=== PATIENT | female | born 1990 | race Caucasian/White ===

== ENCOUNTER 2024-03-23 11:52 | Emergency (ER) | payer OTHER ==
[~2024-03-23] VITALS: Ht 154.9 cm; Wt 45.8 kg
[2024-03-23] MEDS ORDERED: IBUPROFEN 600 MG TABLET ONE (13:00)
[2024-03-23] MEDS ORDERED: ONDANSETRON ODT 4 MG TAB.RAPDIS ONE (13:00)
[2024-03-23] MEDS: IBUPROFEN 600 MG TABLET PO ONE (13:03)
[2024-03-23] MEDS: ONDANSETRON ODT 4 MG TAB.RAPDIS SL ONE (13:03)
[2024-03-23] MEDS ORDERED: IBUP-1955 PO (14:16)
[2024-03-23] MEDS ORDERED: ONDA4TAB5 PO (14:16)
[2024-03-23 14:23] VITALS: BP 136/64; TEMP 98.8; O2SAT 99
== END 2024-03-23 14:27 | disposition home or self-care (01) ==
LOC: ER 11:52
DX: S16.1XXA Strain of muscle, fascia and tendon at neck level, initial encounter (principal); S09.8XXA Other specified injuries of head, initial encounter; V43.52XA Car driver injured in collision with other type car in traffic accident, initial encounter; Y93.89 Activity, other specified; Y92.89 Other specified places as the place of occurrence of the external cause; Y99.8 Other external cause status
CPT/HCPCS: A4606; A4663; Q0162